=== PATIENT | female | born 1995 | race Asian ===

== ENCOUNTER 2020-09-25 06:13 | Inpatient (IN) | payer BC ==
[2020-09-25 06:44] VITALS: BMI 27.6
[2020-09-25] MEDS ORDERED: hydrALAZINE 20 MG/ML VIAL SLOW IVP PRN ×4 (07:08→22:02)
[2020-09-25 07:33] LABS: Amnisure Test RUPTURE DETECTED (No Rupture)
[2020-09-25] MEDS ORDERED: HYDROcodone/Acetaminophen 5/325 mg Tablet PO PRN ×4 (07:51→20:58)
[2020-09-25] MEDS ORDERED: NS / Oxytocin 40 units/1000ml 1,000 ML IV PRN ×2 (07:51→20:56)
[2020-09-25] MEDS ORDERED: Acetaminophen 500 MG TAB PO PRN ×2 (07:51→20:56)
[2020-09-25] MEDS ORDERED: Promethazine HCl 25 MG/ML VIAL IM PRN ×2 (07:51→20:54)
[2020-09-25] MEDS ORDERED: Carboprost 250 MCG/ML AMP IM PRN ×2 (07:51→20:57)
[2020-09-25] MEDS ORDERED: Ibuprofen 800 MG TAB PO PRN ×2 (07:51→20:58)
[2020-09-25] MEDS ORDERED: Lidocaine 1% (PF) 30 ML VIAL SC PRN ×4 (07:51→20:58)
[2020-09-25] MEDS ORDERED: Methylergonovine 0.2 MG/ML VIAL IM PRN ×2 (07:51→20:57)
[2020-09-25] MEDS ORDERED: Ondansetron PF 4 MG/2 ML Vial IVP PRN ×3 (07:51→22:02)
[2020-09-25] MEDS ORDERED: Diphenoxylate HCl/Atropine Tablet PO PRN ×3 (07:51→20:56)
[2020-09-25] MEDS ORDERED: Misoprostol 200 MCG TAB PR PRN ×2 (07:51→20:57)
[2020-09-25 08:37] LABS: Hemoglobin 12.4 g/dL (12.0-15.5); Mean Corpuscular HGB CONC 33.9 g/dL (32.0-36.0); Mean Corpuscular Hemoglobin 31.1 pg (27.0-33.0); Mean Corpuscular Volume 91.7 fl (81.6-98.3); Mean Platelet Volume 12.1 fl (7.4-10.4); Platelet Count 176 10x3/uL (150-450); RBC Distribution Width 13.3 % (11.5-14.5); Red Blood Cell (RBC) Count 3.99 10x6/uL (3.90-5.03); White Blood Cell (WBC) Count 10.5 10x3/uL (3.5-10.5)
[2020-09-25 08:47] LABS: ALT (SGPT) 12 U/L (8-55); AST (SGOT) 19 U/L (5-34); Albumin 3.2 g/dL (3.5-5.0); Alkaline Phosphatase 314 U/L (40-110); Anion Gap 15 mmol/L (10-20); BUN (Urea Nitrogen) 11 mg/dL (7.0-18.7); Bilirubin, Total 0.2 mg/dL (0.2-1.2); Calc. Creatinine Clearance 136 mL/min (70-130); Calcium 9.3 mg/dL (7.8-10.44); Carbon Dioxide 19 mmol/L (22-29); Chloride 108 mmol/L (98-107); Globulin 2.9 g/dL (2.4-3.5); Glucose 113 mg/dL (70-105); Potassium 4.5 mmol/L (3.5-5.1); Protein, Total 6.1 g/dL (6.0-8.3); Sodium 137 mmol/L (136-145)
[2020-09-25 09:04] LABS: Hep B Surf Ag Non-Reactive S/CO (NonReactive)
[2020-09-25 09:06] LABS: Syphilis Antibody Nonreactive (Nonreactive); Syphilis Antibody Index 0.06 S/CO (<1.00 Non-Reactive)
[2020-09-25 09:17] LABS: HBSAg Index 0.18 S/CO (0-0.99)
[2020-09-25] MEDS: Lactated Ringer's 1,000 ML IV SCH ×2 (09:33→14:36)
[2020-09-25] MEDS ORDERED: NS w/ Oxytocin 30 units 500 ML IV SCH ×3 (10:15→21:00)
[2020-09-25] MEDS: NS w/ Oxytocin 30 units 500 ML IV SCH ×2 (10:29→20:40)
[2020-09-25] MEDS: Butorphanol Tartrate 1 MG/ML VIAL SLOW IVP PRN ×2 (16:41→17:56)
[2020-09-25] MEDS ORDERED: Lidocaine 1% (PF) 30 ML VIAL ONE ×2 (19:15→19:20)
[2020-09-25] MEDS ORDERED: NS w/ Oxytocin 30 units 500 ML ONE (20:40)
[2020-09-25] MEDS ORDERED: Butorphanol Tartrate 1 MG/ML VIAL SLOW IVP PRN (20:56)
[2020-09-25 20:57] LABS: SARS-CoV-2 PCR by NAA Not Detected (NotDetected)
[2020-09-25] MEDS ORDERED: Lactated Ringer's 1,000 ML IV SCH (21:00)
[2020-09-25] MEDS ORDERED: Lanolin Ointment 7 GM TUBE TOP PRN (22:02)
[2020-09-25] MEDS ORDERED: Bisacodyl 10 MG SUPP PR PRN (22:02)
[2020-09-25] MEDS ORDERED: Preparation H Ointment 28 GM TUBE PR PRN (22:02)
[2020-09-25] MEDS ORDERED: NS / Oxytocin 40 units/1000ml 1,000 ML IV SCH (22:02)
[2020-09-25] MEDS ORDERED: Benzocaine-Menthol 82.5 ML CAN TOP PRN (22:02)
[2020-09-25] MEDS ORDERED: Milk Of Magnesia 30 ML UDCUP PO PRN (22:02)
[2020-09-25] MEDS ORDERED: diphenhydrAMINE 25 MG CAP PO PRN (22:02)
[2020-09-25] MEDS: Ibuprofen 800 MG TAB PO SCH (22:29)
[2020-09-26 00:21] LABS: Hemoglobin 9.7 g/dL (12.0-15.5)
[2020-09-26] MEDS ORDERED: Lactated Ringer's 1,000 ML IV SCH (00:30)
[2020-09-26] MEDS: HYDROcodone/Acetaminophen 5/325 mg Tablet PO PRN ×2 (00:58→17:15)
[2020-09-26] MEDS: Ibuprofen 800 MG TAB PO SCH ×3 (05:03→21:11)
[2020-09-26] MEDS ORDERED: NS w/ Oxytocin 30 units 500 ML ONE (05:19)
[2020-09-26] MEDS ORDERED: NS w/ Oxytocin 30 units 500 ML IVPB SCH (05:30)
[2020-09-26 05:59] LABS: Hemoglobin 9.1 g/dL (12.0-15.5)
[2020-09-26] MEDS ORDERED: Adacel (T-DAP) 0.5 ML SYRINGE IM ONE (09:00)
[2020-09-26] MEDS: Ferrous Sulfate 325 MG TAB PO SCH ×2 (09:37→17:14)
[2020-09-26] MEDS: Prenatal Vitamin 1 TAB PO SCH (09:37)
[2020-09-26] MEDS: Docusate Calcium (SURFAK) 240 MG CAP PO SCH ×2 (09:38→21:10)
[2020-09-27] MEDS: Ibuprofen 800 MG TAB PO SCH ×2 (05:20→14:15)
[2020-09-27] MEDS: Prenatal Vitamin 1 TAB PO SCH (08:07)
[2020-09-27] MEDS: Ferrous Sulfate 325 MG TAB PO SCH (08:07)
[2020-09-27] MEDS: Docusate Calcium (SURFAK) 240 MG CAP PO SCH (08:07)
[2020-09-27 12:00] VITALS: BP 116/58; TEMP 98
== END 2020-09-27 16:56 | disposition home or self-care (01) | DRG 806 ==
LOC: CSHLD/OP 06:13 → CSHLD 06:15 → UNDOADMIN 08:45 → CSHLD 08:45 → UNDODISIN 17:09 → CSHPP 22:13
PROVIDERS: ADMIT Student in an Organized Health Care Education/Training Program; ATTEND Student in an Organized Health Care Education/Training Program
PROC: 10D07Z6 Extraction of Products of Conception, Vacuum, Via Natural or Artificial Opening (ICD-10-PCS; principal; 2020-09-26)
PROC: 0KQM0ZZ Repair Perineum Muscle, Open Approach (ICD-10-PCS; 2020-09-26)
DX: O24.429 Gestational diabetes mellitus in childbirth, unspecified control (principal); O72.1 Other immediate postpartum hemorrhage; Z37.0 Single live birth; D62 Acute posthemorrhagic anemia; Z3A.38 38 weeks gestation of pregnancy; O99.284 Endocrine, nutritional and metabolic diseases complicating childbirth; E03.9 Hypothyroidism, unspecified; Z20.822 Contact with and (suspected) exposure to COVID-19; O70.1 Second degree perineal laceration during delivery; O90.81 Anemia of the puerperium
CPT/HCPCS: 36415; 36416; 80053; 84112; 85027; 86780; 86850; 86900; 86901; 87340; 87635; 99285; J0595; J2001; J2405; J2590; U0003; U0005

== ENCOUNTER 2020-09-30 16:44 | Inpatient (IN) | payer BC ==
[2020-09-30 18:01] LABS: #Basophils 0.1 10x3/uL (0.0-0.2); #Eosinphils 0.3 10x3/uL (0.0-0.5); #Monocytes 1.1 10x3/uL (0.0-1.1); #Neutrophils 12.2 10x3/uL (1.5-8.4); %Basophils 0.3 % (0.0-2.0); %Eosinophils 1.8 % (0.0-6.0); %Lymphocytes 14.5 % (18.0-47.0); %Monocytes 6.9 % (0.0-10.0); Hemoglobin 10.2 g/dL (12.0-15.5); Mean Corpuscular HGB CONC 33.2 g/dL (32.0-36.0); Mean Corpuscular Hemoglobin 31.3 pg (27.0-33.0); Mean Corpuscular Volume 94.2 fl (81.6-98.3); Mean Platelet Volume 10.4 fl (7.4-10.4); Platelet Count 314 10x3/uL (150-450); RBC Distribution Width 13.9 % (11.5-14.5); Red Blood Cell (RBC) Count 3.26 10x6/uL (3.90-5.03); White Blood Cell (WBC) Count 16.3 10x3/uL (3.5-10.5)
[2020-09-30 18:11] LABS: ALT (SGPT) 29 U/L (8-55); AST (SGOT) 24 U/L (5-34); Albumin 3.7 g/dL (3.5-5.0); Alkaline Phosphatase 176 U/L (40-110); Anion Gap 16 mmol/L (10-20); BUN (Urea Nitrogen) 10 mg/dL (7.0-18.7); Bilirubin, Total 0.3 mg/dL (0.2-1.2); Calc. Creatinine Clearance 0 mL/min (70-130); Calcium 9.7 mg/dL (7.8-10.44); Carbon Dioxide 20 mmol/L (22-29); Chloride 105 mmol/L (98-107); Globulin 3.7 g/dL (2.4-3.5); Glucose 94 mg/dL (70-105); Potassium 4.2 mmol/L (3.5-5.1); Protein, Total 7.4 g/dL (6.0-8.3); Sodium 137 mmol/L (136-145)
[2020-09-30] MEDS ORDERED: Ampicillin 2 GM VIAL ONE (20:36)
[2020-09-30 22:44] VITALS: BMI 26.1
[2020-09-30] MEDS ORDERED: Zolpidem Tartrate 5 MG TAB PO PRN (23:40)
[2020-09-30] MEDS ORDERED: Ondansetron PF 4 MG/2 ML Vial IVP PRN (23:40)
[2020-09-30] MEDS ORDERED: Docusate 100 MG CAP PO PRN (23:40)
[2020-09-30] MEDS ORDERED: hydrALAZINE 20 MG/ML VIAL SLOW IVP PRN (23:40)
[2020-09-30] MEDS ORDERED: traMADol HCl 50 MG TAB PO PRN (23:42)
[2020-09-30] MEDS ORDERED: Acetaminophen 500 MG TAB PO PRN (23:42)
[2020-09-30] MEDS: Gentamicin Sulfate 80 MG in Premix Bag 1 BAG IVPB SCH (23:56)
[2020-09-30] MEDS ORDERED: Ampicillin 2 GM in Sodium Chloride 0.9% 100 ML IVPB SCH (23:59)
[2020-09-30] MEDS ORDERED: Ampicillin 125 MG/5 ML VIAL SLOW IVP SCH (23:59)
[2020-09-30] MEDS ORDERED: Gentamicin Sulfate 80 MG in Premix Bag 1 BAG IVPB SCH (23:59)
[2020-10-01] MEDS: Gentamicin Sulfate 80 MG in Premix Bag 1 BAG IVPB SCH ×3 (00:32→01:36)
[2020-10-01] MEDS: Ibuprofen 800 MG TAB PO SCH ×3 (01:06→16:21)
[2020-10-01] MEDS: Lactated Ringer's 1,000 ML IV SCH ×3 (01:07→22:36)
[2020-10-01] MEDS: Ampicillin 2 GM in Sodium Chloride 0.9% 100 ML IVPB SCH ×4 (03:54→22:28)
[2020-10-01] MEDS: Clindamycin/D5W 900 MG in Premix Bag 1 BAG IVPB SCH ×3 (05:22→23:13)
[2020-10-01] MEDS ORDERED: Gentamicin 320 MG, Admixture Fee 1 EACH in Sodium Chloride 0.9% 100 ML IVPB SCH (23:59)
[2020-10-01] MEDS ORDERED: Gentamicin 290 MG, Admixture Fee 1 EACH in Sodium Chloride 0.9% 100 ML IVPB SCH (23:59)
[2020-10-02] MEDS ORDERED: Gentamicin Sulfate 80 MG in Premix Bag 1 BAG IVPB SCH (00:15)
[2020-10-02] MEDS: Ibuprofen 800 MG TAB PO SCH ×2 (01:39→10:25)
[2020-10-02] MEDS: Ampicillin 2 GM in Sodium Chloride 0.9% 100 ML IVPB SCH ×4 (04:00→21:51)
[2020-10-02] MEDS: Clindamycin/D5W 900 MG in Premix Bag 1 BAG IVPB SCH ×3 (06:54→21:51)
[2020-10-02] MEDS ORDERED: Ibuprofen 800 MG TAB PO PRN (15:54)
[2020-10-02] MEDS: Lactated Ringer's 1,000 ML IV SCH (17:52)
[2020-10-03] MEDS: Gentamicin 320 MG, Admixture Fee 1 EACH in Sodium Chloride 0.9% 100 ML IVPB SCH (01:13)
[2020-10-03] MEDS: Ampicillin 2 GM in Sodium Chloride 0.9% 100 ML IVPB SCH ×4 (05:05→21:27)
[2020-10-03] MEDS: Clindamycin/D5W 900 MG in Premix Bag 1 BAG IVPB SCH ×3 (06:06→22:10)
[2020-10-03] MEDS ORDERED: Benzocaine-Menthol 82.5 ML CAN TOP PRN (06:44)
[2020-10-03 09:26] LABS: #Eosinphils 0.2 10x3/uL (0.0-0.5); #Monocytes 0.8 10x3/uL (0.0-1.1); #Neutrophils 5.2 10x3/uL (1.5-8.4); %Basophils 0.5 % (0.0-2.0); %Eosinophils 2.9 % (0.0-6.0); %Lymphocytes 22.2 % (18.0-47.0); %Monocytes 10.2 % (0.0-10.0); Hemoglobin 8.9 g/dL (12.0-15.5); Mean Corpuscular Hemoglobin 30.6 pg (27.0-33.0); Mean Corpuscular Volume 95.5 fl (81.6-98.3); Mean Platelet Volume 9.9 fl (7.4-10.4); Platelet Count 340 10x3/uL (150-450); RBC Distribution Width 14.2 % (11.5-14.5); Red Blood Cell (RBC) Count 2.91 10x6/uL (3.90-5.03); White Blood Cell (WBC) Count 8.2 10x3/uL (3.5-10.5)
[2020-10-03] MEDS: Lactated Ringer's 1,000 ML IV SCH (10:12)
[2020-10-03] MEDS ORDERED: Ampicillin 2 GM VIAL ONE (15:53)
[2020-10-04] MEDS: Gentamicin 320 MG, Admixture Fee 1 EACH in Sodium Chloride 0.9% 100 ML IVPB SCH (00:02)
[2020-10-04] MEDS: Lactated Ringer's 1,000 ML IV SCH ×2 (03:58→09:55)
[2020-10-04] MEDS: Ampicillin 2 GM in Sodium Chloride 0.9% 100 ML IVPB SCH (03:59)
[2020-10-04] MEDS: Clindamycin/D5W 900 MG in Premix Bag 1 BAG IVPB SCH (05:46)
[2020-10-04 08:33] VITALS: BP 103/63; TEMP 98.5
[2020-10-04] MEDS ORDERED: Amoxicillin/Potassium Clav 875 MG TAB PO SCH (09:00)
== END 2020-10-04 10:49 | disposition home or self-care (01) | DRG 776 ==
LOC: CSHERS 16:44 → CSHPP 22:18
PROVIDERS: ADMIT Student in an Organized Health Care Education/Training Program; ATTEND Student in an Organized Health Care Education/Training Program
DX: O86.12 Endometritis following delivery (principal)
CPT/HCPCS: 36415; 76856; 80053; 80170; 83605; 85025; 87040; 96365; 96367; J0290; J1580; J3490